=== PATIENT | male | born 1990 | race American Indian/Alaskan Native ===

== ENCOUNTER 2020-11-29 23:57 | Emergency (ER) | payer SELFPAY ==
[2020-11-30] MEDS ORDERED: ONDANSETRON 4 MG/2 ML INJ ONE (00:01)
[2020-11-30] MEDS ORDERED: HYDROmorphone 1 MG/1 ML INJ ONE (00:01)
[2020-11-30] MEDS ORDERED: HYDROmorphone 1 MG/1 ML INJ IV ONE ×2 (00:02→01:06)
[2020-11-30] MEDS ORDERED: ONDANSETRON 4 MG/2 ML INJ IV ONE (00:02)
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
[2020-11-30 00:18] LABS: Hematocrit 41.7 % (35.5-45.6); Hemoglobin 14.1 gm/dl (11.8-15.2); Mean Corpuscular HGB Conc 34 % (32-34); Mean Corpuscular Volume 95 fl (84-94); Platelet Count 274 K/mm3 (140-440)
[2020-11-30 00:41] LABS: Alanine Aminotransferase 17 units/L (7-56); Albumin 4.6 g/dL (3.9-5); BUN/Creatinine Ratio 10; Blood Urea Nitrogen 11 mg/dL (9-20); Calcium 9.3 mg/dL (8.4-10.2); Hemolysis Index 15
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
[2020-11-30] MEDS ORDERED: SODIUM CHLORIDE 0.9% IRR 1,000 ML BOTTLE IR ONE (01:30)
[2020-11-30] MEDS ORDERED: SODIUM CHLORIDE IRRI 500 ML 1,000 ML IR ONE (01:36)
[2020-11-30 02:34] VITALS: BP 130/90
[2020-11-30 05:27] LABS: Anisocytosis Few; Burr Cells Rare; Ovalocytes Few; Schistocytes Rare; Target Cells Few; Total Cells Counted 100
[2020-11-30 05:28] LABS: Platelet Estimate Consistent w Auto
== END 2020-11-30 02:34 | disposition home or self-care (01) ==
LOC: EDBD → ED 23:57
DX: S71.131A Puncture wound without foreign body, right thigh, initial encounter (principal); S71.132A Puncture wound without foreign body, left thigh, initial encounter; Z79.899 Other long term (current) drug therapy; W34.09XA Accidental discharge from other specified firearms, initial encounter; Y93.89 Activity, other specified; Y92.89 Other specified places as the place of occurrence of the external cause; Y99.8 Other external cause status
CPT/HCPCS: 36415; 73552; 80053; 85007; 85025; 96365; 96375; 96376; 99284; J0690; J1170; J2405